=== PATIENT | female | born 1990 | race African-American/Black ===

== ENCOUNTER 2019-04-07 23:22 | Inpatient (IN) ==
[2019-04-07] MEDS: LACTATED RINGERS 1,000 ML IV SCH (23:48)
[2019-04-08] MEDS ORDERED: ONDANSETRON 4 MG/2 ML VIAL IV PRN (00:07)
[2019-04-08] MEDS: OXYTOCIN/LR 20 UNIT/1,000 ML BAG IV SCH ×2 (00:20→08:54)
[2019-04-08] MEDS: BUTORPHANOL 1 MG/ML VIAL IV PRN ×2 (00:47→03:51)
[2019-04-08 01:12] LABS: Albumin 2.5 G/DL (3.4-5.0); Bilirubin,Total 0.4 MG/DL (0.2-1.0); Calcium 8.5 MG/DL (8.5-10.1); Osmolality,Calculated 277.3 MOS/KG (273-304); Total Protein 6.4 G/DL (6.4-8.3)
[2019-04-08 01:14] LABS: Basophils % 0.4 % (0.0-0.8); Eosinophils # 0.1 10*3/uL (0.0-0.87); Eosinophils % 0.9 % (0.00-10.9); Hematocrit 26.4 VOL% (35.7-47.0); Hemoglobin 8.4 GM/DL (12.0-16.0); Immature Granulocytes % 0.4 %; Immature Granulocytes Absolute 0.03 #; Lymphocytes # 1.9 10*3/uL (1.4-4.0); Lymphocytes % 23.2 % (21.3-54.2); Mean Corpuscular HGB Conc 31.8 GM/DL (32-36); Mean Corpuscular Volume 96.4 FL (87-102); Mean Platelet Volume 10.8 FL (9.6-12.0); Monocytes % 8.2 % (1.7-12.7); Neutrophils % 66.9 % (38.7-73.9); Platelet Count 192 T/CUMM (130-400); Red Blood Count 2.74 MC/CUMM (3.8-5.5); Red Cell Distribution Width 13.5 % (9.3-17.3)
[2019-04-08] MEDS ORDERED: diphenhydrAMINE 50 MG/1 ML VIAL IV ONE (04:24)
[2019-04-08] MEDS ORDERED: MEPERIDINE 25 MG/1 ML VIAL IV PRN (04:36)
[2019-04-08] MEDS: LACTATED RINGERS 1,000 ML IV SCH (05:41)
[2019-04-08] MEDS ORDERED: LIDOCAINE 1% 50 ML VIAL ONE (06:46)
[2019-04-08] MEDS ORDERED: miSOPROStol 200 MCG TABLET ONE (06:46)
[2019-04-08] MEDS ORDERED: MEPERIDINE 50 MG/1 ML VIAL ONE (06:46)
[2019-04-08] MEDS ORDERED: METHYLERGONOVINE 0.2 MG/1 ML AMP ONE (06:47)
[2019-04-08] MEDS ORDERED: MEPERIDINE 50 MG/1 ML VIAL IV ONE (07:07)
[2019-04-08 07:36] LABS: Cord Arterial Blood HCO3 18.6 MMOL/L
[2019-04-08 07:37] LABS: Cord Venous Blood HCO3 22.9 MMOL/L; Cord Venous Blood PCO2 43.8 MMHG; Cord Venous Blood PO2 37.9 MMHG
[2019-04-08] MEDS ORDERED: BISACODYL 10 MG SUPP RECTAL PRN (07:39)
[2019-04-08] MEDS ORDERED: MAGNESIUM HYDROXIDE SUSP 30 ML UDCUP PO PRN (07:39)
[2019-04-08] MEDS ORDERED: LACTATED RINGERS 1,000 ML IV SCH (08:00)
[2019-04-08] MEDS: KETOROLAC 15 MG/1 ML VIAL IV SCH ×3 (09:35→21:53)
[2019-04-08 11:09] LABS: Apearance,Urine CLEAR (Clear); Bilirubin,Urine Negative (Negative); Blood, Urine Small mg/dL (Negative); Glucose,Urine (UA) Negative (Negative); Ketones,Urine 5 mg/dL (Negative); Mucus,Urine Occasional /LPF (Occasional); Nitrite,Urine Negative (Negative); Protein,Urine 100 MG/DL; RBC,Urine 29 /HPF (0-4); Squamous Epithelial Cell,Urine Occasional /HPF (0-10); Urine Color Yellow (Yellow); Urine Specific Gravity 1.012 (1.001-1.035)
[2019-04-08] MEDS: MULTIVITAMIN (PRENATAL) TABLET PO SCH (12:31)
[2019-04-08] MEDS: DOCUSATE SODIUM 100 MG CAPSULE PO SCH ×2 (12:32→21:53)
[2019-04-08] MEDS ORDERED: IBUPROFEN 800 MG TABLET ONE (13:49)
[2019-04-08 16:31] LABS: Barbiturates Screen,Urine Negative (Negative); Benzodiazepines Screen,Urine Negative (Negative); Cannabinoid Screen,Urine Positive (Negative); Opiate Screen,Urine Negative (Negative); Phencyclidine Screen,Urine Negative (Negative)
[2019-04-08] MEDS: ACETAMINOPHEN 325 MG TABLET PO PRN (19:29)
[2019-04-09] MEDS: KETOROLAC 15 MG/1 ML VIAL IV SCH (03:40)
[2019-04-09 05:43] LABS: Basophils % 0.3 % (0.0-0.8); Eosinophils # 0.1 10*3/uL (0.0-0.87); Hematocrit 25.7 VOL% (35.7-47.0); Immature Granulocytes % 0.4 %; Immature Granulocytes Absolute 0.04 #; Lymphocytes # 2.1 10*3/uL (1.4-4.0); Mean Corpuscular HGB Conc 31.1 GM/DL (32-36); Mean Corpuscular Volume 96.3 FL (87-102); Mean Platelet Volume 10.7 FL (9.6-12.0); Monocytes % 7.5 % (1.7-12.7); Neutrophils % 67.8 % (38.7-73.9); Platelet Count 185 T/CUMM (130-400); Red Blood Count 2.67 MC/CUMM (3.8-5.5); Red Cell Distribution Width 13.2 % (9.3-17.3); White Blood Count 9.1 T/CUMM (4-12)
[2019-04-09] MEDS ORDERED: RHO(D) IMMUNE GLOBULIN 300 MCG SYRINGE IM ONE (09:00)
[2019-04-09] MEDS: DOCUSATE SODIUM 100 MG CAPSULE PO SCH ×2 (09:37→20:34)
[2019-04-09] MEDS: MULTIVITAMIN (PRENATAL) TABLET PO SCH (09:37)
[2019-04-09] MEDS ORDERED: IBUPROFEN 800 MG TABLET ONE (12:09)
[2019-04-09] MEDS: ACETAMINOPHEN 325 MG TABLET PO PRN (12:10)
[2019-04-09] MEDS: IBUPROFEN 800 MG TABLET PO SCH ×2 (12:10→20:34)
[2019-04-09] MEDS ORDERED: IBUPROFEN 800 MG TABLET PO SCH (16:00)
[2019-04-10] MEDS: IBUPROFEN 800 MG TABLET PO SCH ×2 (03:57→11:34)
[2019-04-10 07:11] VITALS: BP 110/74
[2019-04-10] MEDS: MULTIVITAMIN (PRENATAL) TABLET PO SCH (08:07)
[2019-04-10] MEDS: DOCUSATE SODIUM 100 MG CAPSULE PO SCH (08:07)
[2019-04-10] MEDS: ACETAMINOPHEN 325 MG TABLET PO PRN (09:02)
== END 2019-04-10 14:50 | disposition home or self-care (01) | DRG 560 ==
LOC: N.LDOUT 23:22 → N.LD 23:25 → N.OB 04-08 11:09
PROVIDERS: ADMIT Obstetrics & Gynecology; ATTEND Obstetrics & Gynecology